=== PATIENT | female | born 1950 | race Caucasian/White ===

== ENCOUNTER 2025-04-02 08:36 | Day surgery (SDC) | payer MEDICARE, OTHER ==
[2025-04-02] MEDS: Lactated Ringers 1,000 ML IV SCH (08:58)
[2025-04-02] MEDS ORDERED: Propofol 200 MG/20 ML SDV ONE (10:20)
[2025-04-02] MEDS ORDERED: fentaNYL 100 MCG/2 ML SDV ONE (10:20)
== END 2025-04-02 12:16 | disposition home or self-care (01) ==
LOC: JP.SDS 08:36
PROVIDERS: ATTEND Surgery
DX: K22.89 Other specified disease of esophagus (principal); R10.13 Epigastric pain; I10 Essential (primary) hypertension; E66.9 Obesity, unspecified
CPT/HCPCS: 00731; 43239; 88305; J2704; J3010; J7120